=== PATIENT | female | born 1950 | race Caucasian/White ===

== ENCOUNTER → 2017-09-09 | Outpatient (CLI) | payer MEDICARE, SELFPAY | PROVIDERS: PCP Internal Medicine; Visit Provider Internal Medicine | DX: M85.80 Other specified disorders of bone density and structure, unspecified site (principal); R53.83 Other fatigue; E78.00 Pure hypercholesterolemia, unspecified | CPT/HCPCS: 36415; 80048; 80061; 82306; 84443 ==

== ENCOUNTER 2018-01-30 13:36 | Day surgery (SDC) | payer MEDICARE, SELFPAY ==
[2018-01-30 13:50] VITALS: BP 134/80; PULSE 94; RESP 15; TEMP 36.2; O2SAT 98; BMI 28.6
[2018-01-30] MEDS: SODIUM CHLORIDE 0.9% 1,000 ML 200 ML IV (14:06)
--- NOTE | 2018-01-30 14:51 | PM.OP.ENDO ---
Operative Date/Time/Diagnoses Date of procedure: 01/30/18 Time of procedure: 14:51 Pre-op diagnosis: Screening colonoscopy Procedure & Clinicians Indications: Screening colonoscopy Surgeon: Sascha Yost Procedure Notes Procedure in detail: After informed consent was obtained including risks and benefits of procedure including infection bleeding perforation missed lesion airway and cardiac event the patient was taken to the endoscopy suite and given total of 9 mg of Versed and 200 mcg of fentanyl. 900 cc of IV fluids were used in total. Digital rectal exam showed mild external hemorrhoids and well lubricated endoscope was passed into the the rectum and passed to the sigmoid colon were severe sigmoid diverticulosis was encountered. There was no stigmata of bleeding and no polyps were seen. With great care we were able to pass the scope into the true lumen and up into the ascending colon down to the cecum and confirmed with the terminal ileum with gross foot and the appendiceal orifice. Withdrawal time of 11 min showed no evidence of polyp with excellent prep and no stigmata of bleeding. Approximately 95% of the colon was seen. Retroflexion showed grade 1 internal hemorrhoids without evidence of lesion in the in the rectum. The scope was withdrawn the patient tolerated the procedure well was taken to the PACU in stable condition. Scope withdrawal time: Yes Sedation minutes: 7 Findings: diverticulosis (meeks diverticulosis. Sigmoid diverticulosis severe without stimata of bleeding. ) Specimen(s): none sent Complications: none Recommendations: Colonscopy in 10 years Follow up: as needed Disposition: PACU
--- NOTE | 2018-01-30 14:51 | PM.HP.1 ---
History of Present Illness Date Patient Seen: 01/30/18 Time Patient Seen: 14:51 Chief complaint: colonoscopy 60030 Narrative: Screening colonoscopy Father had colon cancer around age 70- lived to age 90+ Patient History Family & Social History Family History: Reviewed 01/30/18 by Sascha Yost MD Social History: household members spouse Meds Home Medications Medication Instructions Recorded Confirmed Type Remicade [id number] 01/30/18 History folic acid 0.8 mg PO DAILY 01/30/18 01/30/18 History methotrexate 3 tab PO WEEKLY 01/30/18 01/30/18 History Allergies Allergy/AdvReac Type Severity Reaction Status Date / Time No Known Drug Allergies Allergy Verified 01/30/18 14:07 Review of Systems Review of Systems All systems reviewed & are unremarkable except as noted in HPI and below Exam Vital Signs (past 8 hours): - 01/30/18 13:50 Temperature 97.2 F L Pulse Rate 94 H Respiratory Rate 15 Blood Pressure 134/80 H Pulse Oximetry 98 Oxygen Delivery Method Room Air Narrative Exam Narrative: Pleasant female no acute distress speaking in full sentences Lungs clear to auscultation bilaterally CV regular rate and rhythm no murmur or gallop or rub Abdomen soft nontender Extremities warm well perfused no cyanosis clubbing or edema Neuro moves all extremities no focal deficits Psych alert and oriented x3 of propria good judgment Assessment & Plan (1) Encounter for screening colonoscopy: Problem details: Colonoscopy Risks and benefits including infection bleeding perforation and missed lesion signs and symptoms of perforation including nausea vomiting fever chills increasing abdominal pain are all reviewed what to do in the event of such are also discussed with the patient in detail. Patient wishes to proceed Current visit: Yes Status: Acute
[2018-01-30] MEDS: fentaNYL 250 MCG/5 ML INJ IV (15:30)
[2018-01-30] MEDS: MIDAZOLAM 5 MG/5 ML VIAL 10 MG IV (15:30)
[2018-01-30 15:33] VITALS: BP 111/83; PULSE 86; RESP 15; TEMP 35.7; O2SAT 97
[2018-01-30 15:38] VITALS: BP 119/84; PULSE 84; RESP 18; O2SAT 92
[2018-01-30 15:43] VITALS: BP 121/87; PULSE 82; RESP 16; O2SAT 92
[2018-01-30 15:48] VITALS: BP 133/89; PULSE 76; RESP 12; O2SAT 97
[2018-01-30 15:57] VITALS: BP 131/83; PULSE 74; RESP 10; TEMP 36.2; O2SAT 98
== END 2018-01-30 16:12 | disposition home or self-care (01) ==
PROVIDERS: PCP Internal Medicine; Visit Provider Surgery
PROC: 0DJD8ZZ Inspection of Lower Intestinal Tract, Via Natural or Artificial Opening Endoscopic (ICD-10-PCS; CPT 45378; principal; 2018-01-30 15:00)
DX: Z12.11 Encounter for screening for malignant neoplasm of colon (principal); K57.30 Diverticulosis of large intestine without perforation or abscess without bleeding
CPT/HCPCS: G0105; 99152; J2250; J3010

== ENCOUNTER → 2019-12-11 12:05 | Outpatient (CLI) | payer MEDICARE, SELFPAY ==
[2019-12-11 12:42] LABS: Add Manual Diff / Slide Review NO; Basophils Absolute Auto 100 /uL (0-100); Basophils Percent Auto 0.9 % (0-2); Eosinophils Absolute Auto 300 /uL (0-450); Eosinophils Percent Auto 3.8 % (2-4); Hematocrit 40.5 % (36-46); Lymphocytes Absolute Auto 3300 /uL (1100-4500); Lymphocytes Percent Auto 44.3 % (25-40); Mean Corpuscular HGB Conc 34.6 % (30-36); Mean Corpuscular Hemoglobin 34.2 PG (26-34); Mean Corpuscular Volume 98.9 fL (80-100); Monocytes Absolute Auto 700 /uL (0-900); Monocytes Percent Auto 9.2 % (3-14); Neutrophils Absolute Auto 3100 /uL (1500-7000); Neutrophils Percent Auto 41.8 % (50-75); Platelet Count 301 X10^3/uL (150-400); Red Blood Cell Count 4.09 X10^6/uL (4.0-5.2); Red Cell Distribution Width 13.5 % (11.6-14.8); White Blood Cell Count 7.5 X10^3/uL (4.5-11.0)
[2019-12-11 12:52] LABS: Alanine Aminotransferase 26 IU/L (<35); Albumin 4.4 g/dL (3.5-5.0); Albumin Globulin Ratio 1.3 (1.0-2.8); Alkaline Phosphatase 77 U/L (38-126); Aspartate Aminotransferase 27 IU/L (14-36); BUN Creatinine Ratio 34.3 (6-22); Bilirubin Total 0.5 mg/dL (0.2-1.3); Blood Urea Nitrogen 24 mg/dL (7-17); Calcium 9.9 mg/dL (8.4-10.2); Carbon Dioxide 30 mmol/L (22-32); Chloride 103 mmol/L (98-107); Estimated Glomerular Filt Rate > 60.0 mL/min (>60); Globulin 3.5 g/dL (1.7-4.1); Glucose 100 mg/dL (80-110); HEMOLYSIS < 15 (0-50); Potassium 4.9 mmol/L (3.4-5.1); Sodium 137 mmol/L (137-145); Total Protein 7.9 g/dL (6.3-8.2)
[2019-12-11 12:53] LABS: C-Reactive Protein Quant < 0.5 mg/dL (<1.0)
[2019-12-11 13:08] LABS: Erythrocyte Sedimentation Rate 12 MM/HR (0-20)
== END ==
PROVIDERS: PCP Internal Medicine; Referring Provider Nurse Practitioner; Visit Provider Nurse Practitioner
DX: M06.09 Rheumatoid arthritis without rheumatoid factor, multiple sites (principal); Z79.899 Other long term (current) drug therapy
CPT/HCPCS: 36415; 80053; 85025; 85651; 86140

== ENCOUNTER → 2022-03-31 13:59 | Outpatient (CLI) | payer MEDICARE, SELFPAY ==
[2022-03-31 14:25] LABS: Add Manual Diff / Slide Review NO; Basophils Absolute Auto 0 /uL (0-100); Basophils Percent Auto 0.3 % (0-2); Eosinophils Absolute Auto 200 /uL (0-450); Eosinophils Percent Auto 3.1 % (2-4); Hematocrit 40.2 % (36-46); Hemoglobin 13.5 g/dL (12.0-16.0); Lymphocytes Absolute Auto 3000 /uL (1100-4500); Lymphocytes Percent Auto 40.1 % (25-40); Mean Corpuscular HGB Conc 33.6 % (30-36); Mean Corpuscular Hemoglobin 33.1 PG (26-34); Mean Corpuscular Volume 98.6 fL (80-100); Monocytes Absolute Auto 700 /uL (0-900); Monocytes Percent Auto 9.1 % (3-14); Neutrophils Absolute Auto 3500 /uL (1500-7000); Neutrophils Percent Auto 47.4 % (50-75); Platelet Count 291 X10^3/uL (150-400); Red Blood Cell Count 4.07 X10^6/uL (4.0-5.2); Red Cell Distribution Width 13.7 % (11.6-14.8); White Blood Cell Count 7.4 X10^3/uL (4.5-11.0)
[2022-03-31 14:45] LABS: Alanine Aminotransferase 20 IU/L (<35); Albumin 4.1 g/dL (3.5-5.0); Albumin Globulin Ratio 1.1 (1.0-2.8); Alkaline Phosphatase 57 U/L (38-126); Aspartate Aminotransferase 27 IU/L (14-36); BUN Creatinine Ratio 33.8 (6-22); Bilirubin Total 0.5 mg/dL (0.2-1.3); Blood Urea Nitrogen 24 mg/dL (7-17); C-Reactive Protein Quant < 0.5 mg/dL (<1.0); Calcium 9.1 mg/dL (8.4-10.2); Carbon Dioxide 26 mmol/L (22-32); Chloride 104 mmol/L (98-107); Estimated Glomerular Filt Rate > 60 mL/min (>60); Globulin 3.7 g/dL (1.7-4.1); Glucose 96 mg/dL (80-110); HEMOLYSIS 47 (0-50); Potassium 4.7 mmol/L (3.4-5.1); Sodium 138 mmol/L (137-145); Total Protein 7.8 g/dL (6.3-8.2)
[2022-03-31 14:47] LABS: Erythrocyte Sedimentation Rate 18 MM/HR (0-20)
== END ==
PROVIDERS: PCP Family Medicine; Referring Provider Family Medicine; Visit Provider Family Medicine
DX: M06.09 Rheumatoid arthritis without rheumatoid factor, multiple sites (principal)
CPT/HCPCS: 36415; 80053; 85025; 85651; 86140

== ENCOUNTER → 2024-06-29 10:47 | Outpatient (CLI) | payer MEDICARE, SELFPAY ==
[2024-06-29 12:07] LABS: Cholesterol 215 mg/dL (140-199); HDL Cholesterol 59 mg/dL (40-60); LDL Cholesterol Calculated 127 mg/dL (<100); Triglycerides 144 mg/dL (35-150)
== END ==
PROVIDERS: PCP Student in an Organized Health Care Education/Training Program; Referring Provider Student in an Organized Health Care Education/Training Program; Visit Provider Student in an Organized Health Care Education/Training Program
DX: Z13.220 Encounter for screening for lipoid disorders (principal)
CPT/HCPCS: 36415; 80061

== ENCOUNTER → 2024-09-25 09:38 | Outpatient (CLI) | payer MEDICARE, SELFPAY ==
[2024-09-25 10:40] LABS: Cholesterol 150 mg/dL (140-199); HDL Cholesterol 73 mg/dL (40-60); LDL Cholesterol Calculated 56 mg/dL (<100); Triglycerides 106 mg/dL (35-150)
== END ==
PROVIDERS: PCP Student in an Organized Health Care Education/Training Program; Referring Provider Student in an Organized Health Care Education/Training Program; Visit Provider Student in an Organized Health Care Education/Training Program
DX: E78.5 Hyperlipidemia, unspecified (principal)
CPT/HCPCS: 36415; 80061